=== PATIENT | female | born 1980 | race Caucasian/White ===

== ENCOUNTER 2017-01-30 05:58 | Day surgery (SDC) | payer OTHER ==
[~2017-01-30] VITALS: Ht 157.5 cm; Wt 66.7 kg
[2017-01-30] MEDS ORDERED: ALLERGY (08:16)
[2017-01-30] MEDS ORDERED: IBUPROFEN 800 MG TAB PO PRN (08:25)
[2017-01-30] MEDS ORDERED: ACETAMINOPHEN/CODEINE 300/30MG 1 TAB PO PRN (08:25)
[2017-01-30] MEDS ORDERED: ONDANSETRON 4 MG/2 ML VIAL IVP PRN ×2 (08:25→09:55)
[2017-01-30] MEDS ORDERED: MORPHINE SULFATE 4 MG/ML SYR IM/IVP PRN (08:25)
[2017-01-30] MEDS ORDERED: PROPOFOL 200 MG/20 ML VIAL IV ONE (08:50)
[2017-01-30] MEDS ORDERED: ONDANSETRON 4 MG/2 ML VIAL ONE (08:50)
[2017-01-30] MEDS ORDERED: KETOROLAC 30 MG/ML VIAL ONE (08:50)
[2017-01-30] MEDS ORDERED: DEXAMETHASONE 4 MG/ML VIAL ONE (08:50)
[2017-01-30] MEDS ORDERED: SEVOFLURANE 250 ML BTL INH ONE (08:50)
[2017-01-30] MEDS ORDERED: fentaNYL 0.05 MG/ML VIAL ONE (08:53)
[2017-01-30] MEDS: HYDROmorphone 1 MG/ML AMP IVP PRN ×4 (09:50→10:20)
[2017-01-30] MEDS ORDERED: HYDROmorphone PFS 2 MG/ML SYR ONE (09:54)
== END 2017-01-30 12:45 | disposition home or self-care (01) ==
LOC: MDS 05:58 → MMU 06:08 → MDS 12:45
PROVIDERS: ATTEND Obstetrics & Gynecology
DX: D06.9 Carcinoma in situ of cervix, unspecified (principal); G43.909 Migraine, unspecified, not intractable, without status migrainosus
CPT/HCPCS: 36415; 57522; 80053; 84702; 85025; J1100; J1170; J1885; J2405; J2704; J3010; J7030; J7120